=== PATIENT | female | born 1975 | race Caucasian/White ===

== ENCOUNTER → 2016-12-15 | Outpatient (CLI) | payer OTHER | LOC: FIMAGING 15:53 | PROVIDERS: ATTEND Obstetrics & Gynecology | DX: Z12.31 Encounter for screening mammogram for malignant neoplasm of breast (principal) | CPT/HCPCS: G0202 ==

== ENCOUNTER → 2018-02-02 | Outpatient (CLI) | payer OTHER | LOC: FIMAGING 07:56 | PROVIDERS: ATTEND Obstetrics & Gynecology | DX: Z12.31 Encounter for screening mammogram for malignant neoplasm of breast (principal) ==

== ENCOUNTER 2018-04-30 05:43 | Day surgery (SDC) | payer OTHER ==
--- NOTE | 2018-04-08 18:31 | GHP ---
DATE OF ADMISSION: 04/30/2018 DATE OF SURGERY: 04/30/2018, 7:15 a.m. Surgery to be performed: Laparoscopic removal of a right paraovarian mass and bilateral salpingectomy. Surgeon will be Dr. Lynn Gregg; dental assistant instructor, Dr. Anna Marie Todd. General anesthesia. PREOPERATIVE DIAGNOSIS: Right pelvic pain, paraovarian cyst, and desires sterilization. HISTORY OF PRESENT ILLNESS: The patient is a 42-year-old 0, who originally presented for her annual exam at the end of September and complaining of right lower quadrant pain in her lower adnexa. She has had episodes of this over the last several years. She describes the episodes as a constant dull ache with times where she has a very sharp pain from moving or twisting in a certain direction. She has well-controlled periods on the NuvaRing, but does feel that her pain is cyclic in nature, is worse when she has her menses. She is nulliparous. She and her do not desire to have children and she is open to sterilization if she needs surgery for other means. She first underwent a pelvic ultrasound in November of 2017, which revealed a right paraovarian mass 1.4 x 1.5 x 1.67 cm, solid-appearing mass next to her right ovary, which was normal, and her left ovary is normal, and there was no free fluid. The patient was offered surgical management at this time. However, her job is to manage music festivals and summer is a bad time for her, so she wished to wait and manage expectantly. She had a followup ultrasound done in January, which revealed the same mass that was posterior and lateral to her ovary, similar in size. The ovaries themselves looked normal. There were no other abnormalities in her pelvis. Because her pain is persistent, she is now wanting to proceed with surgery, so we will do a laparoscopic removal of the right paraovarian mass and she also desires sterilization, so we do a bilateral salpingectomy at the same time. The patient has no past obstetrical history. She has never been . PAST GYNECOLOGICAL HISTORY: Significant for a history of abnormal Paps, ASCUS Paps, and colposcopy. She has been followed closely. She had colposcopies and endometrial biopsies performed in 2014, but she did not have to have a LEEP and most recent Pap this year was negative with negative HPV. She is on the NuvaRing for control, has no issues with that, well-controlled cycles, and no other significant gynecological problems except for her right lower quadrant pain. PAST MEDICAL HISTORY: She has no significant past medical history or chronic medical problems. PAST SURGICAL HISTORY: She has no significant past surgical history. ALLERGY HISTORY: She has no known drug allergies. MEDICATIONS: The only medication she takes is probiotics and her NuvaRing. SOCIAL HISTORY: She is . She lives with her . She works at [employer], [employer]. She denies tobacco use. Alcohol, she says 6 days a week. Occasional marijuana. Rare caffeine. Regular exercise, mostly yoga and Pilates and running. FAMILY HISTORY: Significant for father who from heart disease and colon cancer. Mother also has coronary artery disease, has stents, as does her uncle. REVIEW OF SYSTEMS: Negative, except for pertinent positives as above in HPI. PHYSICAL EXAMINATION: VITAL SIGNS: Blood pressure 120/84. Weight is 139 pounds. GENERAL: She is a well-developed, well-nourished white female in no acute distress. RESPIRATORY: Lungs are clear to auscultation bilaterally. HEART: Regular rate and rhythm. No murmur. ABDOMEN: Soft, nontender. Normal bowel sounds. Some tenderness to deep palpation in the right lower quadrant. PELVIC: Normal external genitalia. Normal nulliparous cervix. Uterus is anteverted, anteflexed, mobile. Some tenderness in the right adnexa. A mass is not appreciated. ASSESSMENT/PLAN: A 42-year-old, 0, with persistent right lower quadrant adnexal pain and a solid right paraovarian mass that has been stable over several months. The patient desires removal for diagnosis and treatment of the pain as well as permanent sterilization. We will perform a laparoscopic removal of a right paraovarian cyst and a salpingectomy. She was consented for the procedure today. She understands the risks and benefits. The risks including bleeding, infection, damage to organs, uterus, tubes, ovaries, bowel, bladder, nerves, blood vessels, ureters, need for open procedure, need for oophorectomy, and need for additional procedures. She understood these risks and benefits and agreed to proceed. /[id number]/MODL MTDD
[~2018-04-30 05:43] MED LIST: LIDOCAINE 1% 2 ML INJ ID PRN; LR 1,000 ML IV ONE
[2018-04-30] MEDS ORDERED: SCOPOLAMINE HYDROBROMIDE 1 MG/3 DAYS PATCH TD ONE (07:03)
[2018-04-30] MEDS ORDERED: fentaNYL 100 MCG/2 ML INJ ONE (07:10)
[2018-04-30] MEDS ORDERED: PROPOFOL/EMULSION 500 MG/50 ML BOTTLE IV ONE (07:10)
[2018-04-30] MEDS ORDERED: MIDAZOLAM 2 MG/2 ML VIAL ONE (07:10)
[2018-04-30] MEDS ORDERED: SILVER NITRATE APPLICATOR 1 APPL TP ONE (07:12)
[2018-04-30] MEDS ORDERED: BUPIVACAINE/EPI 0.5% 30 ML SDV ONE (07:12)
--- NOTE | 2018-04-30 07:19 | PDHPUP ---
History & Physical Update H&P update statement: This history and physical update is based on an assessment of the patient which was completed after admission or registration (within 24 hours), but prior to the surgery/procedure. H&P update: H&P reviewed & patient examined, no change in patient's condition since H&P completed
[2018-04-30] MEDS ORDERED: DEXMEDETOMIDINE HCL 400 MCG in NS 100 ML IV ONE (07:30)
--- NOTE | 2018-04-30 07:43 | PDANEPAE ---
ANE Past Medical History - Cardiovascular History Hx Hypertension: No Hx Arrhythmias: No Hx Chest Pain: No Hx Coronary Artery / Peripheral Vascular Disease: No Hx CHF / Valvular Disease: No Hx Palpitations: No - Pulmonary History Hx COPD: No Hx Asthma/Reactive Airway Disease: No Hx Recent Upper Respiratory Infection: No Hx Oxygen in Use at Home: No Hx Sleep Apnea: No Sleep Apnea Screening Result - Last Documented: Negative - Neurologic History Hx Cerebrovascular Accident: No Hx Seizures: No Hx Dementia: No - Endocrine History Hx Diabetes: No - Renal History Hx Renal Disorders: No - Liver History Hx Hepatic Disorders: No - Neurological & Psychiatric Hx Hx Neurological and Psychiatric Disorders: No - Cancer History Hx Cancer: No - Congenital Disorder History Hx Congenital Disorders: No - GI History Hx Gastrointestinal Disorders: No - Other Health History Other Health History: wears glasses/ contacts - Chronic Pain History Chronic Pain: No - Surgical History Prior Surgeries: n/a ANE Review of Systems Review of Systems: - Exercise capacity METS (RN): 5 METS ANE Patient History - Allergies Allergies/Adverse Reactions: No Allergies [NKDA] Allergy (Verified 04/29/18 11:03) - Home Medications Home Medications: Nuva Ring 04/29/18 [Last Taken Unknown] - NPO status NPO Since - Liquids (Date): 04/30/18 NPO Since - Liquids (Time): 04:00 NPO Since - Solids (Date): 04/29/18 NPO Since - Solids (Time): 20:00 - Smoking Hx Smoking Status: Never smoked - Family Anes Hx Family Hx Anesthesia Complications: none ANE Labs/Vital Signs - Vital Signs Blood Pressure: 147/103 Heart Rate: 79 Respiratory Rate: 18 O2 Sat (%): 99 Height: 167.64 cm Weight: 58.967 kg ANE Physical Exam - Airway Neck exam: FROM Mallampati Score: Class 1 Mouth exam: normal dental/mouth exam - Pulmonary Pulmonary: no respiratory distress, no rales or rhonchi, clear to auscultation - Cardiovascular Cardiovascular: regular rate and rhythym, no murmur, rub, or gallop - ASA Status ASA Status: I ANE Anesthesia Plan Anesthesia Plan: general endotracheal anesthesia
[2018-04-30] MEDS ORDERED: NALOXONE HCL 0.4 MG/ML INJ IVP PRN (07:55)
[2018-04-30] MEDS ORDERED: fentaNYL 100 MCG/2 ML INJ IVP PRN (07:55)
[2018-04-30] MEDS ORDERED: ALBUTEROL 3 ML DEYVIAL IH PRN (07:55)
[2018-04-30] MEDS ORDERED: ONDANSETRON 4 MG/2 ML VIAL IVP PRN (07:55)
[2018-04-30] MEDS ORDERED: oxyCODONE IR 5 MG TAB PO PRN (07:55)
[2018-04-30] MEDS ORDERED: DIAZEPAM 5 MG/ML 1 ML SYR IVP PRN (07:55)
[2018-04-30] MEDS ORDERED: HYDROCODONE/APAP 5/325 TAB PO PRN (07:55)
[2018-04-30] MEDS ORDERED: ACETAMINOPHEN 500 MG TAB PO PRN (07:55)
[2018-04-30] MEDS ORDERED: LR 500 ML IV PRN (07:55)
[2018-04-30] MEDS ORDERED: HYDROmorphONE/DILAUDID 2 MG/ML INJ IVP PRN (07:55)
[2018-04-30] MEDS ORDERED: DEXAMETHASONE 4 MG/ML VIAL IVP PRN (07:55)
[2018-04-30] MEDS ORDERED: GLYCOPYRROLATE 0.2 MG/1 ML VIAL ONE (08:18)
[2018-04-30] MEDS ORDERED: SUGAMMADEX SODIUM 200 MG/2 ML VIAL IVP ONE (08:18)
[2018-04-30] MEDS ORDERED: LIDOCAINE 2% 5 ML SDV ONE (08:18)
[2018-04-30] MEDS ORDERED: KETOROLAC 30 MG/1 ML SDV ONE (08:18)
[2018-04-30] MEDS ORDERED: DEXAMETHASONE 4 MG/ML VIAL ONE (08:18)
[2018-04-30] MEDS ORDERED: ATROPINE SULFATE 1 MG/ML VIAL ONE (08:18)
[2018-04-30] MEDS ORDERED: ONDANSETRON 4 MG/2 ML VIAL ONE (08:18)
[2018-04-30] MEDS ORDERED: ROCURONIUM 50 MG/5 ML VIAL ONE (08:18)
--- NOTE | 2018-04-30 08:44 | POSTOPPROG ---
Post Op Note Date of Operation: 04/30/18 Surgeon: Lynn Gregg Csm Consultant: Anna Marie Todd DO Anesthesiologist: Sonya Reid MD Anesthesia: GET(General Endotracheal) Pre-op Diagnosis: R para-ovarian cyst, desires sterilization Post-op Diagnosis: R ovarian mass, desires sterilization Procedure: Laparoscopic R ovarian cystectomy, bilateral salpingectomy Findings: R ovary with firm mass, normal pelvic anatomy Inf/Abcess present in the surg proc area at time of surgery?: No Depth: Organ Space EBL: Minimal Total fluids administered: 1000 Complications: Pt with episode of bradycardia and asystole with trendelenburg and increased abdominal pressure. Reversed spontaneously with stopping abdominal pressure and upright positioning. Pre operative HTN. Prophylactic Atropine given and pt ultimately did well. Specimen(s): Bilateral fallopian tubes, segment of Right ovary
[2018-04-30] MEDS ORDERED: IBUPROFEN 200 MG TAB PO PRN (08:45)
[2018-04-30] MEDS ORDERED: ONDANSETRON DISINTEGRATING 4 MG TAB PO PRN (08:45)
[2018-04-30] MEDS ORDERED: ENALAPRILAT DIHYDRATE 1.25 MG/ML VIAL ONE (09:15)
--- NOTE | 2018-04-30 09:25 | POSTANESTH ---
Post Anesthetic Evaluation Cardiovascular Status: Normal, Stable, Similar to Pre-Op Cond, Tx Hyper/Hypo- tension Respiratory Status: Normal, Stable, Similar to Pre-op Cond. Level of Consciousness/Mental Status: Mildly Sleepy, Arousable Pain Control: Adequate, Prn Tx Ordered Nausea/Vomiting Control: Adequate, Prn Tx Ordered Notes: PRIMARY HYPERTENSION, UNDIAGNOSED AND UNTREATED
[2018-04-30 11:08] VITALS: BP 120/86
--- NOTE | 2018-04-30 13:17 | GOP ---
DATE OF OPERATION: 04/30/2018 SURGEON: Lynn Gregg MD MECHANIC HELPER: Dr. Anna Marie Todd ANESTHESIA: General anesthesia. ANESTHESIOLOGIST: Ann Reid MD. PREOPERATIVE DIAGNOSIS: 1. Right adnexal pain with a right paraovarian cyst. 2. Desires permanent elective sterilization. POSTOPERATIVE DIAGNOSIS: 1. Right adnexal pain with a right paraovarian cyst. 2. Desires permanent elective sterilization. PROCEDURE PERFORMED: Laparoscopic bilateral salpingectomy and removal of a right ovarian mass. FINDINGS: SPECIMENS: Pathologic specimen will be bilateral fallopian tubes and right ovarian mass. ESTIMATED BLOOD LOSS: Less than 10 cc. DESCRIPTION OF PROCEDURE: Patient was taken to the operating room where she was placed under general anesthesia without difficulty. She was prepped and draped in a dorsal lithotomy position and a Fole y catheter was placed in her bladder. After adequate anesthesia was assured and a WHO time-out was p erformed an open-sided speculum was placed in the vagina, and a single-tooth tenaculum was used to gr asp the anterior lip of the cervix. An acorn uterine manipulator was placed through the cervix to al low for uterine manipulation. Attention was then turned to the abdominal portion of procedure. After injection of Marcaine, a 5 mm skin incision was made in the infraumbilical skin fold and the Veress needle was placed through that incision. A good drop in pressure was noted upon entry to the peritoneal cavity. Pneumoperitoneum was created with carbon dioxide gas without difficulty. The patient was placed in Trendelenburg. In spection of the pelvis revealed a normal uterus and normal fallopian tubes and a right ova ry that had an accessory solid appearing area, but otherwise normal pelvis. After injection of Angela ine, a 5 mm skin incision was made in the right adnexal area and under direct visualization an atraum atic trocar was placed in this side and a 10 mm trocar was placed in the left. The left fallopian tu be was grasped at the fimbriated end. Inspection was made to document a normal location of ureter an d normal anatomy. The LigaSure device was used to cauterize and cut from the fimbriated end to the c ornual end along the mesosalpinx and the fallopian tube was grasped and removed through the 5 mm port . Identical procedure was performed on the right with dissection from the fimbriated end to the corn ual and the tube was removed without difficulty. Deep inspection of the right ovary revealed grossly normal-appearing ovary. However, an accessory lobe that was firm and hard in the inferior portion t hat was adjacent to the normal-appearing right ovary. Because of the patient's persistent pain, deci jelani was made to remove the solid-appearing area. The ovary was grasped and stabilized and the monop olar LigaSure device was used to make a plane from the accessory firm mass and thenormal ovary. During this dissection, however, the patient developed severe bradycardia and an episode of asystole. We dramatically stopped operating, released the pneumoperitoneum and reversed her Trendelenburg and patient spontaneously converted into normal rhythm. Patient had elevated blood pressures preop and during the procedure and Anesthesia was concerned about possible peripheral vascular disease or under lying hypertension that put her her heart in a compromised position because of the Trendelenburg and the pneumoperitoneum. After she was stabilized she was given atropine. We carefully placed her in T rendelenburg but not as deep and allowed for pneumoperitoneum with lower flow. We were able to visua lize and complete the dissection with bipolar removal of the accessory lobe/ovarian mass. This was p laced in an EndoCatch bag and removed through the 10 mm port. Careful inspection of the remainder of the ovary revealed good hemostasis, normal anatomy throughout the pelvis. The 10 mm skin incision w as closed with 0 Vicryl fascia. Pneumoperitoneum was allowed to escape, and the skin was closed with 4-0 Monocryl. The tenaculum and the uterine manipulator were removed and the Chakraborty catheter was rem joshua and there was good hemostasis. The patient tolerated the procedure well. Sponge, lap, needle, and instrument counts were correct x2. Patient went to recovery room in good condition. INDICATIONS FOR PROCEDURE: The patient is a 42-year-old 0 who presented for her annual exam in September of 2017 complaining of right lower quadrant pain in her lower adnexa. She had several episode s of the last several years. She describes the pain as a constant dull ache with time. She has very sharp pain with moving or twisting in certain directions. She has well controlled periods with the NuvaRing, but does feel that her pain is cyclic and related to her cycle. Ultrasound to workup the p ain revealed a right paraovarian mass which was 1.4 x 1.5 x 1.67 cm solid-appearing adjacent to her r ight ovary which was normal and her left ovary was also normal. There was no free fluid and there wa s good blood flow. I offered surgical evaluation for the paraovarian mass at the time. However, nikki diaz was not convenient for her at that time and she wished to postpone. We managed expectantly and did a followup ultrasound this fall, which revealed similar mass, similar size and at this point edgar hill continued to have pain and wished to have definitive management. She also is nulliparous and she and her are sure they do not want to have children and she wishes to be sterilized if she wa s going to have surgery for other reasons, so she wished to have a bilateral salpingectomy. The edgar hill was consented for the procedure. She understood the risks and benefits, the risks including blee ding, infection, damage to organs, uterus, tubes, ovaries, bowel, bladder, nerves, blood vessels, ure ters, risk of needing additional surgery and risk of complications of anesthesia including . Lisette arias understood these risks and benefits and agreed to proceed. URINE OUTPUT: 75 cc. IV FLUIDS: 800 cc. /[id number]/MODL
== END 2018-04-30 12:28 | disposition home or self-care (01) ==
LOC: FSGY 05:43
PROVIDERS: ATTEND Obstetrics & Gynecology
DX: N83.291 Other ovarian cyst, right side (principal); Z30.2 Encounter for sterilization; I10 Essential (primary) hypertension; R00.1 Bradycardia, unspecified; Z82.49 Family history of ischemic heart disease and other diseases of the circulatory system
CPT/HCPCS: J0461; J1100; J1885; J2250; J2405; J2704; J3010